=== PATIENT | female | born 1945 | race Caucasian/White ===

== ENCOUNTER → 2018-05-16 | Outpatient (CLI) | payer OTHER | END | disposition home or self-care (01) | LOC: MAMMO 01:26 | DX: Z12.31 Encounter for screening mammogram for malignant neoplasm of breast (principal) ==

== ENCOUNTER → 2019-07-01 | Outpatient (CLI) | payer OTHER | END | disposition home or self-care (01) | LOC: RAD 10:31 | DX: J06.9 Acute upper respiratory infection, unspecified (principal); I25.10 Atherosclerotic heart disease of native coronary artery without angina pectoris; F17.200 Nicotine dependence, unspecified, uncomplicated; J44.9 Chronic obstructive pulmonary disease, unspecified ==

== ENCOUNTER → 2019-07-11 | Outpatient (CLI) | payer OTHER ==
[~2019-07-11] MED LIST: 'TENORMIN50 MG PO; ASPIRIN FOR CHI81 MG PO; BREO ELLIPTA 11 EACH INH; CITALOPRAM20 MG PO; Meclizine25 MG PO; OMEPRAZOLE MAGN20 MG PO; SIMVASTATIN20 MG PO; VENT7GM INH; XANAX0.5 MG PO; ZYRTEC10 MG PO
== END | disposition home or self-care (01) ==
LOC: CT 00:52
DX: J43.9 Emphysema, unspecified (principal); R91.1 Solitary pulmonary nodule; J40 Bronchitis, not specified as acute or chronic; R09.89 Other specified symptoms and signs involving the circulatory and respiratory systems

== ENCOUNTER → 2019-08-13 | Day surgery (SDC) | payer OTHER ==
[2019-08-13] VITALS (8 sets, daily range): BP systolic 95–132; BP diastolic 39–66
[2019-08-13 10:08] LABS: ACT PARTIAL THROMBO TIME 24.8 SECONDS (20.0-32.1); INTERNATIONAL NORM RATIO 0.9 (2.0-3.5)
== END | disposition home or self-care (01) ==
LOC: SDC 01:43
PROVIDERS: Internal Medicine Critical Care Medicine
DX: C34.11 Malignant neoplasm of upper lobe, right bronchus or lung (principal); I25.10 Atherosclerotic heart disease of native coronary artery without angina pectoris; K21.9 Gastro-esophageal reflux disease without esophagitis; F32.9 Major depressive disorder, single episode, unspecified; F41.9 Anxiety disorder, unspecified; J44.9 Chronic obstructive pulmonary disease, unspecified; Z87.891 Personal history of nicotine dependence; Z83.3 Family history of diabetes mellitus; Z82.5 Family history of asthma and other chronic lower respiratory diseases; Z80.42 Family history of malignant neoplasm of prostate

== ENCOUNTER → 2020-08-12 | Outpatient (CLI) | payer OTHER | END | disposition home or self-care (01) | LOC: MAMMO 09:01 | PROVIDERS: ATTEND Internal Medicine Hematology & Oncology | DX: Z12.31 Encounter for screening mammogram for malignant neoplasm of breast (principal) ==

== ENCOUNTER 2020-08-21 17:33 | Emergency (ER) | payer OTHER ==
[~2020-08-21] VITALS: Ht 154.9 cm; Wt 46.3 kg
[2020-08-21 18:29] LABS: BASO % 0.5 % (0.0-1.0); EOS # 0.1 10*3/uL (0.0-0.4); EOS % 1.1 % (1.0-4.0); HEMATOCRIT 37.7 % (37.0-47.0); LYMPH # 0.6 10*3/uL (1.3-4.4); LYMPH % 11.2 % (27.0-41.0); MEAN CELL VOLUME 91.5 fl (81.0-99.0); MEAN CORPUSCULAR HGB 28.9 pg (27.0-31.0); MEAN CORPUSCULAR HGB CONC 31.6 g/dl (33.0-37.0); MEAN PLATELET VOLUME 10.3 fl (9.6-12.3); MONO # 0.8 10*3/uL (0.1-1.0); MONO % 13.7 % (3.0-9.0); NEUT # 4.1 10*3/uL (2.3-7.9); PLATELET COUNT AUTOMATED 246 10*3/uL (130-400); RED BLOOD COUNT 4.12 10*6/uL (4.10-5.10); RED CELL DISTRI WIDTH 14.7 % (0-14.5); WHITE BLOOD COUNT 5.6 10*3/uL (4.8-10.8)
[2020-08-21 18:44] LABS: ALKALINE PHOSPHATASE 149 U/L (45-117); BUN 12 mg/dl (7-24); CHLORIDE 104 mmol/L (98-107); CREATININE 0.89 mg/dL (0.55-1.02); POTASSIUM 3.6 mmol/L (3.5-5.1); SGOT/AST 16 IU/L (3-35); SGPT/ALT 14 U/L (12-78); SODIUM 139 mmol/L (136-145); TOTAL PROTEIN 7.1 gm/dL (6.4-8.2)
== END 2020-08-21 20:27 | disposition home or self-care (01) ==
LOC: ED 17:33
PROVIDERS: Student in an Organized Health Care Education/Training Program
DX: I95.9 Hypotension, unspecified (principal); R55 Syncope and collapse; Z79.899 Other long term (current) drug therapy; Z79.82 Long term (current) use of aspirin

== ENCOUNTER 2021-01-03 15:53 | Observation (INO) | payer OTHER ==
[~2021-01-03] VITALS: Ht 152.4 cm; Wt 46.1 kg
[2021-01-03 16:02] VITALS: BP 141/55
[2021-01-03 16:18] VITALS: BP 141/55
[2021-01-03 16:32] LABS: HEMATOCRIT 36.8 % (37.0-47.0); MEAN CELL VOLUME 91.8 fl (81.0-99.0); MEAN CORPUSCULAR HGB 29.7 pg (27.0-31.0); MEAN CORPUSCULAR HGB CONC 32.3 g/dl (33.0-37.0); MEAN PLATELET VOLUME 10.4 fl (9.6-12.3); PLATELET COUNT AUTOMATED 297 10*3/uL (130-400); RED BLOOD COUNT 4.01 10*6/uL (4.10-5.10); RED CELL DISTRI WIDTH 14.9 % (0-14.5); WHITE BLOOD COUNT 6.7 10*3/uL (4.8-10.8)
[2021-01-03 16:43] LABS: ACT PARTIAL THROMBO TIME 22.3 SECONDS (20.0-32.1)
[2021-01-03 16:50] LABS: ALBUMIN 3.9 gm/dl (3.1-4.5); ALKALINE PHOSPHATASE 136 U/L (45-117); BUN 22 mg/dl (7-24); CHLORIDE 97 mmol/L (98-107); CREATININE 1.05 mg/dL (0.55-1.02); LIPASE 169 U/L (73-393); SGOT/AST 13 IU/L (3-35); SGPT/ALT 19 U/L (12-78); SODIUM 130 mmol/L (136-145); TOTAL PROTEIN 7.9 gm/dL (6.4-8.2)
[2021-01-03 16:51] LABS: PLATELET SUFFICIENCY NORMAL (NORMAL); TOTAL CELLS COUNTED 100 #CELLS; TROPONIN I < 0.015 ng/ml (<0.045); VACUOLATION OF NEUTROPHILS SLIGHT
[2021-01-03 17:21] VITALS: BP 142/59
[2021-01-03 17:30] LABS: BILIRUBIN Negative (Negative); BLOOD Negative (Negative); CLARITY Clear (Clear); COLOR Yellow (Yellow); GLUCOSE Negative (Negative); KETONE Negative (Negative); LEUKO ESTERASE Negative (Negative); NITRITE Negative (Negative); UROBILINOGEN 0.2 E.U./dl (0.0-1.0)
[2021-01-03 17:40] LABS: BACTERIA TRACE; EPITHELIAL CELLS 0-2; RBC 0-2 rbc/hpf (0-2)
[2021-01-03 18:17] VITALS: BP 107/57
[2021-01-03 18:22] VITALS: BP 140/71
[2021-01-03] MEDS ORDERED: NAPROXEN500 M1 PO (21:35)
[2021-01-03] MEDS ORDERED: INCRUSE ELLI62.5 MCG INH (21:35)
[2021-01-03] MEDS ORDERED: Meclizine25 MG PO (21:38)
[2021-01-03] MEDS ORDERED: PROCHLORPERAZIN10 MG PO (22:55)
[2021-01-03] MEDS ORDERED: TYLENOL EXTRA500 M2 PO (23:27)
[2021-01-04] VITALS: BP 166/65
[2021-01-04 08:00] VITALS: BP 92/76
[2021-01-04 12:00] VITALS: BP 115/53
[2021-01-04 16:00] VITALS: BP 108/52
[2021-01-04 20:00] VITALS: BP 115/60
[2021-01-05] VITALS: BP 114/54
[2021-01-05 08:00] VITALS: BP 136/50
== END 2021-01-05 10:56 | disposition home or self-care (01) ==
LOC: ED 15:53 → 4E 21:12 → EDHOLD 21:12 → 4E 22:04
PROVIDERS: Physician Assistant; ADMIT Internal Medicine; ATTEND Internal Medicine
DX: R07.89 Other chest pain (principal); R73.9 Hyperglycemia, unspecified; C34.90 Malignant neoplasm of unspecified part of unspecified bronchus or lung; Z20.822 Contact with and (suspected) exposure to COVID-19; J44.9 Chronic obstructive pulmonary disease, unspecified; E78.2 Mixed hyperlipidemia; M54.9 Dorsalgia, unspecified; G89.29 Other chronic pain; M19.90 Unspecified osteoarthritis, unspecified site; E87.2 Acidosis; F17.210 Nicotine dependence, cigarettes, uncomplicated; Z88.0 Allergy status to penicillin; Z88.2 Allergy status to sulfonamides; Z90.2 Acquired absence of lung [part of]

== ENCOUNTER 2021-02-11 18:08 | Inpatient (IN) | payer OTHER ==
[2021-02-11] VITALS (17 sets, daily range): BP systolic 83–140; BP diastolic 57–100
[~2021-02-11] VITALS: Ht 152.4 cm; Wt 44.6 kg
[~2021-02-11 18:08] MED LIST changes: +INCRUSE ELLI62.5 MCG INH; +NAPROXEN500 M1 PO; +PROCHLORPERAZIN10 MG PO; +TYLENOL EXTRA500 M2 PO
[2021-02-11 18:20] LABS: ARTERIAL BLOOD GAS PH 7.278 (7.35-7.45); ARTERIAL BLOOD GAS PO2 69.8 (80-90)
[2021-02-11 18:58] LABS: BASO % 0.3 % (0.0-1.0); EOS % 0.1 % (1.0-4.0); HEMATOCRIT 38.1 % (37.0-47.0); LYMPH # 1.7 10*3/uL (1.3-4.4); LYMPH % 12.6 % (27.0-41.0); MEAN CORPUSCULAR HGB 30.9 pg (27.0-31.0); MEAN CORPUSCULAR HGB CONC 31.2 g/dl (33.0-37.0); MEAN PLATELET VOLUME 10.3 fl (9.6-12.3); MONO % 7.5 % (3.0-9.0); NEUT # 10.8 10*3/uL (2.3-7.9); NEUT % 78.3 % (47.0-73.0); PLATELET COUNT AUTOMATED 215 10*3/uL (130-400); RED BLOOD COUNT 3.85 10*6/uL (4.10-5.10); WHITE BLOOD COUNT 13.8 10*3/uL (4.8-10.8)
[2021-02-11 19:14] LABS: ALBUMIN 2.9 gm/dl (3.1-4.5); ALKALINE PHOSPHATASE 91 U/L (45-117); BUN 24 mg/dl (7-24); CHLORIDE 108 mmol/L (98-107); CREATININE 1.04 mg/dL (0.55-1.02); POTASSIUM 3.7 mmol/L (3.5-5.1); SGOT/AST 30 IU/L (3-35); SGPT/ALT 13 U/L (12-78); SODIUM 139 mmol/L (136-145); TOTAL PROTEIN 6.3 gm/dL (6.4-8.2)
[2021-02-11 19:17] LABS: ACT PARTIAL THROMBO TIME 22.1 SECONDS (20.0-32.1)
[2021-02-11 21:47] LABS: ARTERIAL BLOOD GAS PH 7.205 (7.35-7.45); ARTERIAL BLOOD GAS PO2 128.6 (80-90)
[2021-02-11 21:53] LABS: ABG BASE EXCESS -9.2 mmol/L (-2.0-2.0)
[2021-02-12] VITALS: BP 99/43
[2021-02-12 00:46] LABS: HEMATOCRIT 36.9 % (37.0-47.0); MEAN CORPUSCULAR HGB 31.2 pg (27.0-31.0); MEAN CORPUSCULAR HGB CONC 28.5 g/dl (33.0-37.0); MEAN PLATELET VOLUME 10.7 fl (9.6-12.3); PLATELET COUNT AUTOMATED 168 10*3/uL (130-400); RED BLOOD COUNT 3.37 10*6/uL (4.10-5.10); WHITE BLOOD COUNT 18.8 10*3/uL (4.8-10.8)
[2021-02-12 00:49] LABS: MEAN CELL VOLUME 109.5 fl (81.0-99.0)
[2021-02-12 01:06] LABS: ALBUMIN 1.8 gm/dl (3.1-4.5); ALKALINE PHOSPHATASE 72 U/L (45-117); BUN 20 mg/dl (7-24); BURR CELLS MODERATE; CHLORIDE 113 mmol/L (98-107); CREATININE 1.06 mg/dL (0.55-1.02); PLATELET SUFFICIENCY NORMAL (NORMAL); POTASSIUM 4.4 mmol/L (3.5-5.1); SGOT/AST 31 IU/L (3-35); SGPT/ALT 18 U/L (12-78); SODIUM 141 mmol/L (136-145); TOTAL CELLS COUNTED 100 #CELLS; TOTAL PROTEIN 4.1 gm/dL (6.4-8.2)
== END 2021-02-12 03:23 | DRG 871 ==
LOC: ED 18:08 → ICCU 20:53 → EDHOLD 20:53 → ICCU 21:11
PROVIDERS: Emergency Medicine; Internal Medicine; ADMIT Internal Medicine; ATTEND Internal Medicine
PROC: 5A09357 Assistance with Respiratory Ventilation, Less than 24 Consecutive Hours, Continuous Positive Airway Pressure (ICD-10-PCS; principal; 2021-02-11)
PROC: 5A1935Z Respiratory Ventilation, Less than 24 Consecutive Hours (ICD-10-PCS; 2021-02-11)
PROC: 0BH17EZ Insertion of Endotracheal Airway into Trachea, Via Natural or Artificial Opening (ICD-10-PCS; 2021-02-11)
DX: A41.9 Sepsis, unspecified organism (principal); J96.01 Acute respiratory failure with hypoxia; R65.21 Severe sepsis with septic shock; J18.9 Pneumonia, unspecified organism; N17.0 Acute kidney failure with tubular necrosis; J44.0 Chronic obstructive pulmonary disease with (acute) lower respiratory infection; E44.0 Moderate protein-calorie malnutrition; Z68.1 Body mass index [BMI] 19.9 or less, adult; G89.29 Other chronic pain; M54.5 Low back pain; E78.2 Mixed hyperlipidemia; I95.9 Hypotension, unspecified; E83.41 Hypermagnesemia; M89.49 Other hypertrophic osteoarthropathy, multiple sites; R73.9 Hyperglycemia, unspecified; Z88.0 Allergy status to penicillin; Z88.2 Allergy status to sulfonamides; Z83.3 Family history of diabetes mellitus; Z85.118 Personal history of other malignant neoplasm of bronchus and lung; Z90.710 Acquired absence of both cervix and uterus